=== PATIENT | male | born 1990 | race Caucasian/White ===

== ENCOUNTER 2020-08-21 10:57 | Emergency (ER) | payer OTHER ==
[~2020-08-21] VITALS: Ht 177.8 cm; Wt 111.1 kg
[~2020-08-21 10:57] MED LIST: BACTRIM DS TAB1 EACH PO; CITALOPRAM HBR20 MG PO; CLINDAMYCIN HC300 MG PO; DICLOFENAC SODI75 MG PO; GABAPENTIN600 MG PO; KEFLEX500 MG PO; OXYCODONE HCL5 MG PO; SEPTRA DS TABL1 EACH PO; SEROQUEL100 MG PO; SEROQUEL25 MG PO; TRAMADOL HCL50 MG PO; ULTRAM50 MG PO
[2020-08-21] MEDS ORDERED: PENICILLIN V P500 MG PO (11:39)
== END 2020-08-21 11:47 | disposition home or self-care (01) ==
LOC: ED 10:57
DX: K04.7 Periapical abscess without sinus (principal); F17.200 Nicotine dependence, unspecified, uncomplicated
CPT/HCPCS: 99283

== ENCOUNTER 2021-03-07 15:19 | Emergency (ER) | payer OTHER ==
[~2021-03-07] VITALS: Ht 177.8 cm; Wt 108.9 kg
[~2021-03-07 15:19] MED LIST changes: +PENICILLIN V P500 MG PO
[2021-03-07] MEDS ORDERED: PENICILLIN V P500 MG PO (15:44)
== END 2021-03-07 16:01 | disposition home or self-care (01) ==
LOC: ED 15:19
DX: K04.7 Periapical abscess without sinus (principal); F17.200 Nicotine dependence, unspecified, uncomplicated
CPT/HCPCS: 99282

== ENCOUNTER 2021-10-07 14:27 | Emergency (ER) | payer OTHER ==
[~2021-10-07] VITALS: Ht 177.8 cm; Wt 106.6 kg
== END 2021-10-07 15:35 | disposition home or self-care (01) ==
LOC: ED 14:27
DX: S61.432A Puncture wound without foreign body of left hand, initial encounter (principal); F17.200 Nicotine dependence, unspecified, uncomplicated; W26.0XXA Contact with knife, initial encounter
CPT/HCPCS: 90471; 90715; 99283

== ENCOUNTER 2023-03-18 00:01 | Emergency (ER) | payer OTHER ==
[~2023-03-18] VITALS: Ht 177.8 cm; Wt 92.2 kg
[2023-03-18 00:54] LABS: HEMOGLOBIN 12.3 g/dL (12.0-18.0)
[2023-03-18 00:56] LABS: HEMATOCRIT 36.9 % (35.0-50.0); MCH 29.4 (27-36); MCHC 33.3 g/dl (30-36); MCV 88.2 fl (81-99); PLATELET COUNT 290 K/uL (140-440); RBC 4.18 M/ul (4.3-5.7); RDW 14.9 (10.5-15.0)
[2023-03-18 01:09] LABS: ALBUMIN 3.2 g/dL (3.4-5.0); ALBUMIN/GLOBULIN RATIO 0.74 (1.1-2.4); ANION GAP 8.4 (7-21); BANDS, MANUAL DIFF 3; BILIRUBIN, TOTAL 0.3 ng/dL (0.2-1.0); BUN/CREATININE RATIO 9.63 (6.0-28.6); CALCIUM 8.7 mg/dL (8.5-10.1); CREATININE, SERUM 0.83 mg/dL (0.70-1.30); LYMPHOCYTES, MANUAL DIFF 6; MONOCYTES, MANUAL DIFF 2; NEUTROPHILS, MANUAL DIFF 89; POTASSIUM 3.4 mmol/L (3.5-5.1); PROTEIN, TOTAL 7.5 g/dL (6.4-8.2)
[2023-03-18] MEDS ORDERED: AMOX TR-K CLV1 EAC1 PO (01:33)
[2023-03-18] MEDS ORDERED: BACTRIM DS TAB1 EACH PO (01:33)
[2023-03-18 05:35] VITALS: BP 131/80
== END 2023-03-18 05:41 | disposition home or self-care (01) ==
LOC: ED 00:01
PROVIDERS: Internal Medicine
DX: L02.212 Cutaneous abscess of back [any part, except buttock and flank] (principal); F17.200 Nicotine dependence, unspecified, uncomplicated
CPT/HCPCS: 10160; 36415; 80053; 83605; 85025; 87040; 87070; 87075; 87205; 99283-25; A9270; J2543; J3370; J7060; J7121

== ENCOUNTER 2023-03-19 00:07 | Inpatient (IN) | payer OTHER ==
[~2023-03-19] VITALS: Ht 177.8 cm; Wt 93.1 kg
--- OUTSIDE RECORDS SUMMARY | ~2023-03-19 | XMS | Continuity of Care Document ---
Demographics + + + | Address | [address] | | | [place] [address] | + + + | Preferred Language | Unknown | + + + | Marital Status | Never | + + + | Shinto Affiliation | Unknown | + + + | Race | White | + + + | Ethnic Group | Not or | + + + Author + + + | Author | [facility] | + + + | Organization | [facility] | + + + | Address | [address] | | | [place] [address] | + + + | Phone | | + + + Care Team Providers + + + + | Care Cuprous Chloride Operator Name | Role | Phone | + + + + Unavailable | Unavailable | + + + + Unavailable | Unavailable | + + + + Unavailable | Unavailable | + + + + Allergies and Intolerances + + + + + + | date | description | facility | reaction | severity | + + + + + + | (no date) | No Known Drug | [facility] | (no reaction) | (no severity) | | | Allergies | | | | + + + + + + Encounters No information. Functional Status No information. Immunizations + + + + | date | description | facility | + + + + | 2021-10-07 00:00 | Tdap | [facility] | + + + + | 2023-03-18 00:00 | No vaccine administered | [facility] | + + + + Medications + + + + | date | description | facility | + + + + | 2013-01-04 00:00 | CLINDAMYCIN HCL | [facility] | + + + + | 2013-01-04 00:00 | clindamycin 300 MG Oral | [facility] | | | Capsule | | + + + + | 2023-03-18 00:00 | AMOXICILLIN/POTASSIUM CLAV | [facility] | | | | | + + + + | 2023-03-18 00:00 | amoxicillin 875 MG / | [facility] | | | clavulanate 125 MG Oral | | | | Tablet | | + + + + | 2020-08-21 00:00 | PENICILLIN V POTASSIUM | [facility] | + + + + | 2021-03-07 00:00 | PENICILLIN V POTASSIUM | [facility] | + + + + | 2020-08-21 00:00 | penicillin V potassium 500 | [facility] | | | MG Oral Tablet | | + + + + | 2021-03-07 00:00 | penicillin V potassium 500 | [facility] | | | MG Oral Tablet | | + + + + | 2013-06-13 00:00 | TRAMADOL HCL | [facility] | + + + + | 2013-06-13 00:00 | tramadol hydrochloride 50 | [facility] | | | MG Oral Tablet | | + + + + | 2013-01-04 00:00 | TRAMADOL HCL | [facility] | + + + + | 2013-01-04 00:00 | tramadol hydrochloride 50 | [facility] | | | MG Oral Tablet [Ultram] | | + + + + | 2014-01-18 00:00 | | [facility] | | | SULFAMETHOXAZOLE/TRIMETHOPR | | | | IM DS | | + + + + | 2023-03-18 00:00 | | [facility] | | | SULFAMETHOXAZOLE/TRIMETHOPR | | | | IM DS | | + + + + | 2014-01-18 00:00 | sulfamethoxazole 800 MG / | [facility] | | | trimethoprim 160 MG Oral | | | | Tablet [B | | + + + + | 2023-03-18 00:00 | sulfamethoxazole 800 MG / | [facility] | | | trimethoprim 160 MG Oral | | | | Tablet [B | | + + + + Problems + + + + | date | description | facility | + + + + | 2020-08-21 00:00 | Dental infection | [facility] | + + + + | 2020-08-21 00:00 | Infection of tooth | [facility] | + + + + | 2021-10-07 00:00 | Puncture wound of left | [facility] | | | hand | | + + + + | 2023-03-18 00:00 | Abscess | [facility] | + + + + Procedures No information. Results/Labs +--------+--------+ +---------+--------+---------+ | test | date | facility | value | unit | notes | +--------+--------+ +---------+--------+---------+ + + | Result panel 1 | + + + + + +--------+ + + | | 2023-03-18 | [facility] | 19.3 | (missing) | (missing) | | (unavailable | [facility]45:07 [facility] | | | | + + + +--------+ + + + + | Result panel 2 | + + + + + +------+ + + | | 2023-03-18 | [facility] | 89 | (missing) | (missing) | | (unavailable | 00[facility]45:07 [facility] | | | | + + + +------+ + + + + | Result panel 3 | + + + + + +-----+ + + | | 2023-03-18 | [facility] | 6 | (missing) | (missing) | | (unavailable | 00[facility]45:07 [facility] | | | | + + + +-----+ + + + + | Result panel 4 | + + + + + +-----+ + + | | 2023-03-18 | [facility] | 2 | (missing) | (missing) | | (unavailable | 00[facility]45:07 [facility] | | | | + + + +-----+ + + + + | Result panel 5 | + + + + + +-----+ + + | | 2023-03-18 | [facility] | 3 | (missing) | (missing) | | (unavailable | 00[facility]45:07 [facility] | | | | + + + +-----+ + + + + | Result panel 6 | + + + + + +-------+---------+ + | | 2023-03-18 | [facility] | 138 | mg/dL | (missing) | | (unavailable | 00:45:07 [facility] | | | | + + + +-------+---------+ + + + | Result panel 7 | + + + + + +-----+---------+ + | | 2023-03-18 | [facility] | 8 | mg/dL | (missing) | | (unavailable | 00:45:07 [facility] | | | | + + + +-----+---------+ + + + | Result panel 8 | + + + + + +--------+---------+ + | | 2023-03-18 | [facility] | 0.83 | mg/dL | (missing) | | (unavailable | 00:45:07 [facility] | | | | + + + +--------+---------+ + + + | Result panel 9 | + + + + + +-------+ + + | | 2023-03-18 | [facility] | 119 | (missing) | (missing) | | (unavailable | 00:45:07 [facility] | | | | + + + +-------+ + + + + | Result panel 10 | + + + + + +--------+ + + | | 2023-03-18 | [facility] | 9.63 | (missing) | (missing) | | (unavailable | 00:45:07 [facility] | | | | + + + +--------+ + + + + | Result panel 11 | + + + + + +-------+ + + | | 2023-03-18 | [facility] | 136 | (missing) | (missing) | | (unavailable | 00:45:07 [facility] | | | | + + + +-------+ + + + + | Result panel 12 | + + + + + +--------+ + + | | 2023-03-18 | [facility] | 4.18 | (missing) | (missing) | | (unavailable | 00:45:07 [facility] | | | | + + + +--------+ + + + + | Result panel 13 | + + + + + +-------+ + + | | 2023-03-18 | [facility] | 3.4 | (missing) | (missing) | | (unavailable | 00:45:07 [facility] | | | | + + + +-------+ + + + + | Result panel 14 | + + + + + +------+ + + | | 2023-03-18 | [facility] | 99 | (missing) | (missing) | | (unavailable | 00:45:07 [facility] | | | | + + + +------+ + + + + | Result panel 15 | + + + + + +------+ + + | | 2023-03-18 | [facility] | 32 | (missing) | (missing) | | (unavailable | 00:45:07 [facility] | | | | + + + +------+ + + + + | Result panel 16 | + + + + + +-------+ + + | | 2023-03-18 | [facility] | 8.4 | (missing) | (missing) | | (unavailable | 00:45:07 [facility] | | | | + + + +-------+ + + + + | Result panel 17 | + + + + + +-------+---------+ + | | 2023-03-18 | [facility] | 8.7 | mg/dL | (missing) | | (unavailable | 00:45:07 [facility] | | | | + + + +-------+---------+ + + + | Result panel 18 | + + + + + +-------+ + + | | 2023-03-18 | [facility] | 7.5 | (missing) | (missing) | | (unavailable | 00:45:07 [facility] | | | | + + + +-------+ + + + + | Result panel 19 | + + + + + +-------+ + + | | 2023-03-18 | [facility] | 3.2 | (missing) | (missing) | | (unavailable | 00:45:07 [facility] | | | | + + + +-------+ + + + + | Result panel 20 | + + + + + +-------+ + + | | 2023-03-18 | [facility] | 4.3 | (missing) | (missing) | | (unavailable | 00:45:07 [facility] | | | | + + + +-------+ + + + + | Result panel 21 | + + + + + +--------+ + + | | 2023-03-18 | [facility] | 0.74 | (missing) | (missing) | | (unavailable | 00:45:07 [facility] | | | | + + + +--------+ + + + + | Result panel 22 | + + + + + +-------+ + + | | 2023-03-18 | [facility] | 0.3 | (missing) | (missing) | | (unavailable | 00:45:07 [facility] | | | | + + + +-------+ + + + + | Result panel 23 | + + + + + +--------+ + + | | 2023-03-18 | [facility] | 12.3 | (missing) | (missing) | | (unavailable | 00:45:07 [facility] | | | | + + + +--------+ + + + + | Result panel 24 | + + + + + +------+ + + | | 2023-03-18 | [facility] | 21 | (missing) | (missing) | | (unavailable | 00:45:07 [facility] | | | | + + + +------+ + + + + | Result panel 25 | + + + + + +------+ + + | | 2023-03-18 | [facility] | 29 | (missing) | (missing) | | (unavailable | 00[facility]45:07 [facility] | | | | + + + +------+ + + + + | Result panel 26 | + + + + + +-------+ + + | | 2023-03-18 | [facility] | 116 | (missing) | (missing) | | (unavailable | 00:45:07 [facility] | | | | + + + +-------+ + + + + | Result panel 27 | + + + + + +-------+ + + | | 2023-03-18 | [facility] | 1.0 | (missing) | (missing) | | (unavailable | 00[facility]45:07 [facility] | | | | + + + +-------+ + + + + | Result panel 28 | + + + + + +--------+ + + | | 2023-03-18 | [facility] | 36.9 | (missing) | (missing) | | (unavailable | 00:45:07 [facility] | | | | + + + +--------+ + + + + | Result panel 29 | + + + + + +--------+ + + | | 2023-03-18 | [facility] | 88.2 | (missing) | (missing) | | (unavailable | 00:45:07 [facility] | | | | + + + +--------+ + + + + | Result panel 30 | + + + + + +--------+ + + | | 2023-03-18 | [facility] | 29.4 | (missing) | (missing) | | (unavailable | 00:45:07 [facility] | | | | + + + +--------+ + + + + | Result panel 31 | + + + + + +--------+ + + | | 2023-03-18 | [facility] | 33.3 | (missing) | (missing) | | (unavailable | 00:45:07 [facility] | | | | + + + +--------+ + + + + | Result panel 32 | + + + + + +--------+ + + | | 2023-03-18 | [facility] | 14.9 | (missing) | (missing) | | (unavailable | 00:45:07 [facility] | | | | + + + +--------+ + + + + | Result panel 33 | + + + + + +-------+ + + | | 2023-03-18 | [facility] | 290 | (missing) | (missing) | | (unavailable | 00:45:07 [facility] | | | | + + + +-------+ + + + + | Serum or plasma alanine aminotransferase measurement (enzymatic activity/volume) | + + + + + +------+ + + | Serum or | 2023-03-18 | [facility] | 29 | (missing) | (missing) | | plasma | 00:45 | [facility] | | | | alanine | | Hospital | | | | | aminotransfe | | | | | | | rase | | | | | | | measurement | | | | | | | (enzymatic | | | | | | | activity/vol | | | | | | | ume) | | | | | | + + + +------+ + + + + | Serum or plasma albumin measurement (mass/volume) | + + + + + +-------+ + + | Serum or | 2023-03-18 | [facility] | 3.2 | (missing) | (missing) | | plasma | 00:45 | [facility] | | | | albumin | [facility] | | | | | measurement | | | | | | | (mass/volume | | | | | | | ) | | | | | | + + + +-------+ + + + + | Serum or plasma albumin/globulin mass ratio | + + + + + +--------+ + + | Serum or | 2023-03-18 | [facility] | 0.74 | (missing) | (missing) | | plasma | 00:45 | [facility] | | | | albumin/glob | | [facility] | | | | | ulin mass | | | | | | | ratio | | | | | | + + + +--------+ + + + + | Serum or plasma calcium measurement (mass/volume) | + + + + + +-------+ + + | Serum or | 2023-03-18 | [facility] | 8.7 | (missing) | (missing) | | plasma | 00:45 | [facility] | | | | calcium | | [facility] | | | | | measurement | | | | | | | (mass/volume | | | | | | | ) | | | | | | + + + +-------+ + + + + | Serum or plasma anion gap 4 | + + + + + +-------+ + + | Serum or | 2023-03-18 | [facility] | 8.4 | (missing) | (missing) | | plasma anion | 00:45 | [facility] | | | | gap 4 | | [facility] | | | | + + + +-------+ + + + + | Serum or plasma aspartate aminotransferase measurement (enzymatic activity/volume) | + + + + + +------+ + + | Serum or | 2023-03-18 | [facility] | 21 | (missing) | (missing) | | plasma | 00:45 | [facility] | | | | aspartate | | [facility] | | | | | aminotransfe | | | | | | | rase | | | | | | | measurement | | | | | | | (enzymatic | | | | | | | activity/vol | | | | | | | ume) | | | | | | + + + +------+ + + + + | Serum or plasma total bilirubin measurement (mass/volume) | + + + + + +-------+ + + | Serum or | 2023-03-18 | [facility] | 0.3 | (missing) | (missing) | | plasma total | 00:45 | [facility] | | | | bilirubin | | [facility] | | | | | measurement | | | | | | | (mass/volume | | | | | | | ) | | | | | | + + + +-------+ + + + + | Serum or plasma carbon dioxide, total measurement (moles/volume) | + + + + + +------+ + + | Serum or | 2023-03-18 | [facility] | 32 | (missing) | (missing) | | plasma | 00:45 | [facility] | | | | carbon | | [facility] | | | | | dioxide, | | | | | | | total | | | | | | | measurement | | | | | | | (moles/volum | | | | | | | e) | | | | | | + + + +------+ + + + + | Serum or plasma chloride measurement (moles/volume) | + + + + + +------+ + + | Serum or | 2023-03-18 | [facility] | 99 | (missing) | (missing) | | plasma | 00:45 | [facility] | | | | chloride | | [facility] | | | | | measurement | | | | | | | (moles/volum | | | | | | | e) | | | | | | + + + +------+ + + + + | Automated erythrocyte distribution width | + + + + + +--------+ + + | Automated | 2023-03-18 | [facility] | 14.9 | (missing) | (missing) | | erythrocyte | 00:45 | [facility] | | | distribution | | [facility] | | | | | width | | | | | | + + + +--------+ + + + + | Serum or plasma creatinine measurement (mass/volume) | + + + + + +--------+ + + | Serum or | 2023-03-18 | [facility] | 0.83 | (missing) | (missing) | | plasma | 00:45 | [facility] | | | creatinine | [facility] | | | | | measurement | | | | | | | (mass/volume | | | | | | | ) | | | | | | + + + +--------+ + + + + | Serum globulin measurement (mass/volume) | + + + + + +-------+ + + | Serum | 2023-03-18 | [facility] | 4.3 | (missing) | (missing) | | globulin | 00:45 | [facility] | [facility] | [facility] | | | | | (mass/volume | | | | | | | ) | | | | | | + + + +-------+ + + + + | Serum or plasma glucose measurement (mass/volume) | + + + + + +-------+ + + | Serum or | 2023-03-18 | [facility] | 138 | (missing) | (missing) | | plasma | 00:45 | [facility] | | | | glucose | | [facility] | | | | | measurement | | | | | | | (mass/volume | | | | | | | ) | | | | | | + + + +-------+ + + + + | Serum or plasma lactate measurement (moles/volume) | + + + + + +-------+ + + | Serum or | 2023-03-18 | [facility] | 1.0 | (missing) | (missing) | | plasma | 00:45 | [facility] | | | | lactate | | [facility] | | | | | measurement | | | | | | | (moles/volum | | | | | | | e) | | | | | | + + + +-------+ + + + + | Serum or plasma potassium measurement (moles/volume) | + + + + + +-------+ + + | Serum or | 2023-03-18 | [facility] | 3.4 | (missing) | (missing) | | plasma | 00:45 | [facility] | | | potassium | | [facility] | | | | | measurement | | | | | | | (moles/volum | | | | | | | e) | | | | | | + + + +-------+ + + + + | Serum or plasma protein measurement (mass/volume) | + + + + + +-------+ + + | Serum or | 2023-03-18 | [facility] | 7.5 | (missing) | (missing) | | plasma | 00:45 | [facility] | | | | protein | | [facility] | | | | | measurement | | | | | | | (mass/volume | | | | | | | ) | | | | | | + + + +-------+ + + + + | Serum or plasma sodium measurement (moles/volume) | + + + + + +-------+ + + | Serum or | 2023-03-18 | [facility] | 136 | (missing) | (missing) | | plasma | 00:45 | [facility] | | | | sodium | | [facility] | | | | | measurement | | | | | | | (moles/volum | | | | | | | e) | | | | | | + + + +-------+ + + + + | Serum or plasma urea nitrogen measurement (mass/volume) | + + + + + +-----+ + + | Serum or | 2023-03-18 | [facility] | 8 | (missing) | (missing) | | plasma urea | 00:45 | [facility] | | | | nitrogen | | [facility] | | | | | measurement | | | | | | | (mass/volume | | | | | | | ) | | | | | | + + + +-----+ + + + + | Serum or plasma urea nitrogen/creatinine mass ratio | + + + + + +--------+ + + | Serum or | 2023-03-18 | [facility] | 9.63 | (missing) | (missing) | | plasma urea | 00:45 | [facility] | | | | nitrogen/cre | | [facility] | | | | | atinine mass | | | | | | | ratio | | | | | | + + + +--------+ + + + + | Blood leukocytes automated count (number/volume) | + + + + + +--------+ + + | Blood | 2023-03-18 | [facility] | 19.3 | (missing) | (missing) | | leukocytes | 00:45 | [facility] | | | | automated | | [facility] | | | | | count | | | | | | | (number/volu | | | | | | | me) | | | | | | + + + +--------+ + + + + | Serum or plasma alkaline phosphatase measurement (enzymatic activity/volume) | + + + + + +-------+ + + | Serum or | 2023-03-18 | [facility] | 116 | (missing) | (missing) | | plasma | 00:45 | [facility] | | | | alkaline | | [facility] | | | | | phosphatase | | | | | | | measurement | | | | | | | (enzymatic | | | | | | | activity/vol | | | | | | | ume) | | | | | | + + + +-------+ + + + + | Blood hemoglobin measurement (mass/volume) | + + + + + +--------+ + + | Blood | 2023-03-18 | [facility] | 12.3 | (missing) | (missing) | | hemoglobin | 00:45 | [facility] | measurement | [facility] | | | | | (mass/volume | | | | | | | ) | | | | | | + + + +--------+ + + + + | Automated blood hematocrit | + + + + + +--------+ + + | Automated | 2023-03-18 | [facility] | 36.9 | (missing) | (missing) | | blood | 00:45 | [facility] | | | | hematocrit | | [facility] | | | | + + + +--------+ + + + + | Manual blood lymphocytes/100 leukocytes | + + + + + +-----+ + + | Manual | 2023-03-18 | [facility] | 6 | (missing) | (missing) | | blood | 00:45 | [facility] | | | | lymphocytes/ | | [facility] | | | | | 100 | | | | | | | leukocytes | | | | | | + + + +-----+ + + + + | Manual blood monocytes/100 leukocytes | + + + + + +-----+ + + | Manual | 2023-03-18 | [facility] | 2 | (missing) | (missing) | | blood | 00:45 | [facility] | | | | monocytes/10 | | [facility] | | | | | 0 leukocytes | | | | | | | | | | | | | + + + +-----+ + + + + | Manual blood band neutrophils form/100 leukocytes | + + + + + +-----+ + + | Manual | 2023-03-18 | [facility] | 3 | (missing) | (missing) | | blood band | 00:45 | [facility] | | | | neutrophils | | [facility] | | | | | form/100 | | | | | | | leukocytes | | | | | | + + + +-----+ + + + + | Manual blood segmented neutrophils/100 leukocytes | + + + + + +------+ + + | Manual | 2023-03-18 | [facility] | 89 | (missing) | (missing) | | blood | 00:45 | [facility] | | | | segmented | | [facility] | | | | | neutrophils/ | | | | | | | 100 | | | | | | | leukocytes | | | | | | + + + +------+ + + + + | Automated blood platelet count (count/volume) | + + + + + +-------+ + + | Automated | 2023-03-18 | [facility] | 290 | (missing) | (missing) | | blood | 00:45 | [facility] | | | | platelet | | [facility] | | | | | count | | | | | | | (count/volum | | | | | | | e) | | | | | | + + + +-------+ + + + + | Automated erythrocyte mean corpuscular hemoglobin (mass per erythrocyte) | + + + + + +--------+ + + | Automated | 2023-03-18 | [facility] | 29.4 | (missing) | (missing) | | erythrocyte | 00:45 | [facility] | | | | mean | | [facility] | | | | | corpuscular | | | | | | | hemoglobin | | | | | | | (mass per | | | | | | | erythrocyte) | | | | | | | | | | | | | + + + +--------+ + + + + | Automated erythrocyte mean corpuscular hemoglobin concentration measurement | | (mass/volume) | + + + + + +--------+ + + | Automated | 2023-03-18 | [facility] | 33.3 | (missing) | (missing) | | erythrocyte | 00:45 | [facility] | | | | mean | | [facility] | | | | | corpuscular | | | | | | | hemoglobin | | | | | | | concentratio | | | | | | | n | | | | | | | measurement | | | | | | | (mass/volume | | | | | | | ) | | | | | | + + + +--------+ + + + + | Automated erythrocyte mean corpuscular volume | + + + + + +--------+ + + | Automated | 2023-03-18 | [facility] | 88.2 | (missing) | (missing) | | erythrocyte | 00:45 | [facility] | | | | mean | | [facility] | | | | | corpuscular | | | | | | | volume | | | | | | + + + +--------+ + + + + | Blood erythrocytes automated count (number/volume) | + + + + + +--------+ + + | Blood | 2023-03-18 | [facility] | 4.18 | (missing) | (missing) | | erythrocytes | 00:45 | [facility] | | | | automated | | [facility] | | | | | count | | | | | | | (number/volu | | | | | | | me) | | | | | | + + + +--------+ + + + + | Glomerular filtration rate/1.73 sq M.predicted [Volume Rate/Area] inSerum, Plasma or | | Blood by Creatinine-based formula (CKD-EPI 2020) | + + + + + +-------+ + + | Glomerular | 2023-03-18 | [facility] | 119 | (missing) | (missing) | | filtration | 00:45 | [facility] | | | | | rate/1.73 sq | | Hospital | | | | | M.predicted | | | | | | | [Volume | | | | | | | Rate/Area] | | | | | | | inSerum, | | | | | | | Plasma or | | | | | | | Blood by | | | | | | | Creatinine-b | | | | | | | ased formula | | | | | | | (CKD-EPI | | | | | | | 2020) | | | | | | + + + +-------+ + + Social History + + + + | date | description | facility | + + + + | 2023-03-18 00:00 | Current every day smoker | [facility] | + + + + Vital Signs + + + +---------+ | date | measurement | value | units | + + + +---------+ | 2023-03-18 00:00 | BMI | 29.2 | kg/m2 | + + + +---------+ | 2023-03-18 00:00 | BP_diastolic | 80 | mmHg | + + + +---------+ | 2023-03-18 00:00 | BP_systolic | 131 | mmHg | + + + +---------+ | 2023-03-18 00:00 | heart_rate | 96 | /min | + + + +---------+ | 2023-03-18 00:00 | height_metric | 177.8 | cm | + + + +---------+ | 2023-03-18 00:00 | height_standard | 70 | in | + + + +---------+ | 2023-03-18 00:00 | o2_saturation | 98 | % | + + + +---------+ | 2023-03-18 00:00 | respiration_rate | 18 | /min | + + + +---------+ | 2023-03-18 00:00 | temperature_metric | 36.78 | C | | | | | | + + + +---------+ | 2023-03-18 00:00 | | 98.2 | F | | | temperature_standar | | | | | d | | | + + + +---------+ | 2023-03-18 00:00 | weight_metric | 92.2 | kg | + + + +---------+ | 2023-03-18 00:00 | weight_standard | 203.27 | lb | + + + +---------+"
--- OUTSIDE RECORDS SUMMARY | ~2023-03-19 | XMS | Continuity of Care Document ---
Demographics + + + | Address | [address] | | | [place] [address] | + + + | Preferred Language | Unknown | + + + | Marital Status | Never | + + + | Moravian Affiliation | Unknown | + + + | Race | White | + + + | Ethnic Group | Not or | + + + Author + + + | Author | [place] | + + + | Organization | [place] | + + + | Address | [address] | | | [place] [address] | + + + | Phone | | + + + Care Team Providers + + + + | Care Logger All Round Name | Role | Phone | + [...] | 2021-10-07 00:00 | Tdap | [facility] | + + + + | 2023-03-18 00:00 | No vaccine administered | [facility] | + + + + Medications + + + + | date | description | facility | + + + + | 2013-01-04 00:00 | CLINDAMYCIN HCL | [facility] | + + + + | 2013-01-04 00:00 | clindamycin 300 MG Oral | [facility] | | | Capsule | | + + + + | 2023-03-18 00:00 | AMOXICILLIN/POTASSIUM CLAV | [facility] | | | | | + + + + | 2023-03-18 00:00 | amoxicillin 875 MG / | [facility] | | | clavulanate 125 MG Oral | | | | Tablet | | + + + + | 2020-08-21 00:00 | PENICILLIN V POTASSIUM | [facility] | + + + + | 2021-03-07 00:00 | PENICILLIN V POTASSIUM | [facility] | + + + + | 2020-08-21 00:00 | penicillin V potassium 500 | [facility] | | | MG Oral Tablet | | + + + + | 2021-03-07 00:00 | penicillin V potassium 500 | [facility] | | | MG Oral Tablet | | + + + + | 2013-06-13 00:00 | TRAMADOL HCL | [facility] | + + + + | 2013-06-13 00:00 | tramadol hydrochloride 50 | [facility] | | | MG Oral Tablet | | + + + + | 2013-01-04 00:00 | TRAMADOL HCL | [facility] | + + + + | 2013-01-04 00:00 | tramadol hydrochloride 50 | [facility] | | | MG Oral Tablet [Ultram] | | + + + + | 2014-01-18 00:00 | | [facility] | | | SULFAMETHOXAZOLE/TRIMETHOPR | | | | IM DS | | + + + + | 2023-03-18 00:00 | | [facility] | | | SULFAMETHOXAZOLE/TRIMETHOPR | | | | IM DS | | + + + + | 2014-01-18 00:00 | sulfamethoxazole 800 MG / | [facility] | | | trimethoprim 160 MG Oral | | | | Tablet [B | | + + + + | 2023-03-18 00:00 | sulfamethoxazole 800 MG / | [facility] | | | trimethoprim 160 MG Oral | | | | Tablet [B | | + + + + Problems + + + + | date | description | facility | + + + + | 2020-08-21 00:00 | Dental infection | [facility] | + + + + | 2020-08-21 00:00 | Infection of tooth | [facility] | + + + + | 2021-10-07 00:00 | Puncture wound of left | [facility] | | | hand | | + + + + | 2023-03-18 00:00 | Abscess | [facility] | + + + + Procedures [...] | Current every day smoker | [facility] | + + + + Vital Signs [...]
--- OUTSIDE RECORDS SUMMARY | ~2023-03-19 | XMS | Continuity of Care Document ---
Demographics + + + | Address | [address] | | | [place] [address] | + + + | Preferred Language | Unknown | + + + | Marital Status | Never | + + + | Anabaptist Affiliation | Unknown | + + + | Race | White | + + + | Ethnic Group | Not or | + + + Author + + + | Author | [facility] | + + + | Organization | [facility] | + + + | Address | [address] | | | [place] [address] | + + + | Phone | | + + + Care Team Providers + + + + | Care Automotive Wholesale Parts Advisor Name | Role | Phone | + [...] | 2021-10-07 00:00 | Tdap | [facility] | + + + + | 2023-03-18 00:00 | No vaccine administered | [facility] | + + + + Medications + + + + | date | description | facility | + + + + | 2013-01-04 00:00 | CLINDAMYCIN HCL | [facility] | + + + + | 2013-01-04 00:00 | clindamycin 300 MG Oral | [facility] | | | Capsule | | + + + + | 2023-03-18 00:00 | AMOXICILLIN/POTASSIUM CLAV | [facility] | | | | | + + + + | 2023-03-18 00:00 | amoxicillin 875 MG / | [facility] | | | clavulanate 125 MG Oral | | | | Tablet | | + + + + | 2020-08-21 00:00 | PENICILLIN V POTASSIUM | [facility] | + + + + | 2021-03-07 00:00 | PENICILLIN V POTASSIUM | [facility] | + + + + | 2020-08-21 00:00 | penicillin V potassium 500 | [facility] | | | MG Oral Tablet | | + + + + | 2021-03-07 00:00 | penicillin V potassium 500 | [facility] | | | MG Oral Tablet | | + + + + | 2013-06-13 00:00 | TRAMADOL HCL | [facility] | + + + + | 2013-06-13 00:00 | tramadol hydrochloride 50 | [facility] | | | MG Oral Tablet | | + + + + | 2013-01-04 00:00 | TRAMADOL HCL | [facility] | + + + + | 2013-01-04 00:00 | tramadol hydrochloride 50 | [facility] | | | MG Oral Tablet [Ultram] | | + + + + | 2014-01-18 00:00 | | [facility] | | | SULFAMETHOXAZOLE/TRIMETHOPR | | | | IM DS | | + + + + | 2023-03-18 00:00 | | [facility] | | | SULFAMETHOXAZOLE/TRIMETHOPR | | | | IM DS | | + + + + | 2014-01-18 00:00 | sulfamethoxazole 800 MG / | [facility] | | | trimethoprim 160 MG Oral | | | | Tablet [B | | + + + + | 2023-03-18 00:00 | sulfamethoxazole 800 MG / | [facility] | | | trimethoprim 160 MG Oral | | | | Tablet [B | | + + + + Problems + + + + | date | description | facility | + + + + | 2020-08-21 00:00 | Dental infection | [facility] | + + + + | 2020-08-21 00:00 | Infection of tooth | [facility] | + + + + | 2021-10-07 00:00 | Puncture wound of left | [facility] | | | hand | | + + + + | 2023-03-18 00:00 | Abscess | [facility] | + + + + Procedures [...] (missing) | | erythrocytes | 00:45 | Knu | | | | | automated | [...] | Current every day smoker | [facility] | + + + + Vital Signs [...]
[~2023-03-19 00:07] MED LIST changes: +AMOX TR-K CLV1 EAC1 PO
--- OUTSIDE RECORDS SUMMARY | 2023-03-19 00:16 | XMS ---
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 Joann has no Care Guidelines for this patient. Bishnu VISIT COUNT (12 MO.) [address] [facility]. TOTAL 2 NOTE: Visits indicate total known visits. ED/C VISIT TRACKING (12 MO.) 03/19/2023 00:[address] [facility] [place] TYPE: Emergency COMPLAINT: - WOUND CHECK 03/18/2023 00:03 [facility] [place] TYPE: Emergency COMPLAINT: - R SHOULDER INFECTION INPATIENT VISIT TRACKING (12 MO.) No inpatient visits to display in this time frame [email or web address]
[2023-03-19 05:59] LABS: HEMATOCRIT 39.9 % (35.0-50.0); MCH 29.2 (27-36); MCHC 32.5 g/dl (30-36); MCV 89.7 fl (81-99); PLATELET COUNT 307 K/uL (140-440); RBC 4.45 M/ul (4.3-5.7); RDW 14.8 (10.5-15.0)
[2023-03-19 06:11] LABS: BANDS, MANUAL DIFF 13; EOSINOPHILS, MANUAL DIFF 3; LYMPHOCYTES, MANUAL DIFF 11; MONOCYTES, MANUAL DIFF 8; NEUTROPHILS, MANUAL DIFF 65
[2023-03-19 06:14] LABS: ALBUMIN 2.8 g/dL (3.4-5.0); ALBUMIN/GLOBULIN RATIO 0.6 (1.1-2.4); ANION GAP 11.1 (7-21); BILIRUBIN, TOTAL 0.3 ng/dL (0.2-1.0); BUN/CREATININE RATIO 8.33 (6.0-28.6); CALCIUM 9.1 mg/dL (8.5-10.1); CREATININE, SERUM 0.84 mg/dL (0.70-1.30); POTASSIUM 4.1 mmol/L (3.5-5.1); PROTEIN, TOTAL 7.5 g/dL (6.4-8.2)
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
--- NOTE | 2023-03-19 11:01 | NUR ---
03/19/23 1101 Aneta Barrett 1033 PT ARRIVED IN PACU NON RESPONSIVE TO NOXIOUS STIMULI. 1045 ICE TO R SCAPULAR AREA. 1100 PT REACTIVE TO VERBAL STIMULI. NO C/O'S.
[2023-03-19 11:44] VITALS: BP 131/61
--- NOTE | 2023-03-19 11:44 | NUR ---
PT ARRIVED FROM PACU. PT AWAKEN AND ALERT AND ASKS TO USE THE RESTROOM. PT UP TO STAND, STEADY ON FEET. BMAT LEVEL 3 FOR LINE AND TUBE MANAGEMENT. PT VOIDS 100ML IN URINAL. REJI CARE PER PT. STAND BY ASSIST BACK TO BED. PT OREINTED TO ALL.LUNG SOUNDS CLEAR. HEART TONES REGULAR. ABDOMEN SOFT AND NON TENDER. BOWEL TONES ACTIVE. PT UNABLE TO RECALL WHEN HIS LAST BOWEL MOVEMENT OCCURED. DRESSING TO RIGHT SHOUDLER WNL, NO DRAINAGE SEEN. PT DENIES PAIN AND NAUSEA. PICK PINEDA SEEN OVER PTS ARMS LEGS AND ABDOMEN. PT ENCORUAGED NOT TO PICK AT SKIN. PT REQUESTS FOOD AND WATER. CRACKERS, PUDDING, WATER PROVIDED, PT TOELRATES WELL. MEDICAITON GIVEN. PT DENIES ADDITIONAL REQUESTS OR COMPLAINTS. CALL LIGHT WIHTIN REACH. BED RAILS UP.
[2023-03-19 12:49] VITALS: BP 120/57
--- NOTE | 2023-03-19 12:51 | NUR ---
VITALS AND ASSESSMENT DUE. PT RESTING IN BED WITH HEAD OF BED ELEVATED TO 37 DEGREES. PT DROWSY ON AND OFF. PT AWAKENS ON AND OFF, PT RPEORTS 4/10 PAIN IN RIGHT SHOULDER, SEE MAR FOR MEDICATION GIVEN. VITAL SIGNS STABLE. DRESSING TO RIGHT SHOUDLER C/D/I WITH NO DRAINAGE PRESENT. PT DENEIS ADDITIONAL REQUESTS OR COMPLAINTS. CALL LIGHT WITHIN REACH. BED RAILS UP.
[2023-03-19 13:41] VITALS: BP 115/63
--- NOTE | 2023-03-19 13:43 | NUR ---
VITALS AND ASSESSMENT DUE. PT RESTING IN BED WITH EYES CLOSED. AWAKENS TO VOICE AND LIGHT TOUCH. PT REMAINS ALERT AND ORINETED TO ALL, ALTHOUGH DROWSY. DIAPHORESIS PRESENT, NOTED THAT PT IS COMING DOWN FROM METH USE ON SATURDAY. PT REPORTS 2/10 PAIN STATING PAIN MEDICATION HELPED AND PAIN IS TOELRABLE AT THIS TIME. PT TOELRATIN ROOM AIR WITH OXGYEN SATURATIONS ABOVE 96% EVEN WHILE SLEEPING. DRESSING TO RIGHT SHOULDER C/D/I. CASE MANAGEMENT TO BEDSIDE TO KARISSA ON PT. PT DENIES ADDITIONAL REQUESTS OR COMPLAINTS. CALL LIGHT WITHIN REACH. BED RAILS UP.
--- NOTE | 2023-03-19 13:49 | NUR ---
PATIENT IN BED POST OP. STATES HE "TECHNICALLY LIVES WITH MY MOM, BUT I'M STAYING WITH A FRIEND." MOTHER'S ADDRESS ON CHART. NO ISSUES WITH MOBILITY. DENIES ANY DME. DENIES FINANCIAL HARDSHIP SUCH WITH FOOD OR MEDICATIONS. STATES HE STILL DRIVES AND DOES NOT NORMALLY HAVE AN ISSUE WITH TRANSPORTATION. DENIES ANY NEEDS AT THIS TIME.
[2023-03-19 14:37] VITALS: BP 127/60
--- NOTE | 2023-03-19 14:37 | NUR ---
AFTERNOON ASSESSMENT AND VITALS DUE. PT RESTING IN BED WITH EYES CLOSED. PT AWAKENS TO VOICE AND LIGHT TOUCH. PT REPORTS FEELING "TIRED. " PT REPORTS "A LITTLE" PAIN IN RIGHT SHOULDER THAT HE RATES AT 1/10. PT DENIES NAUSEA. HEART TONES REMAIN REGULAR. LUNG SOUNDS CLEAR. PT REMAINS MILDY DIPHROETIC, LESS THAN LAST HOUR. ABDOMEN SOFT AND NON TENDER WITH BOWEL TONES ACTIVE. DRESSING TO RIGHT SHOUDLER REMAINS C/D/I WITH NO DRAINAGE PRESENT. PICK PINEDA OVER SKIN UNCHANGED. STRONG PERPHERAL PULSES PRESENT. SCD'S IN PLACE. STAND BY ASSSIST UP TO RESTROOM. PT VOIDS IN URINAL WITHOUT ISSUE. STAND BY ASSIST BACK TO BED. DR. MATOS TO BEDSIDE FOR ROUNDS, UPDATED ON PT STATUS AND ASSESSMENT, NO NEW ORDERS AT THIS TIME. PT RETURNS TO RESTING WITH EYES CLOSED. RESPIRATIONS EVEN AND UNLABORED. BED RAILS UP. CALL LIGHT WITHIN REACH. PT ALLOWED TO REST.
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
--- NOTE | 2023-03-19 16:04 | NUR ---
MED REC COMPLETE
--- NOTE | 2023-03-19 16:05 | NUR ---
PT ADMITTED THIS SHIFT AFTER I&D OF LEFT SHOULDER ABCESS. PT UP WITH STAND BY ASSIST TO RESTROOM BUT OTHERWISE DROWSY. PT TOLERATING REGULAR DIET WITH GOOD APPITITE. PT DECLINES A NICOTENE PATCH WHEN OFFERED. REPORTS HAVING HAD METH TWO DAYS AGO. PT DIAPHREOTIC AT TIMES. DRESSING TO RIGHT SHOULDER WNL AND C/D/I SO FAR THIS SHIFT. CPOX IN PLACE AND PT TOLERATING ROOM AIR. ABX GIVEN. PT VOIDING QUANITTY SUFFICIENT. PT USES CALL LIGHT INCONSISTANTLY.
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
--- NOTE | 2023-03-19 16:47 | NUR ---
THIS RN TO ROOM TO CHECK ON PT. PT CONTINEUS RESTING WITH EYES CLOSED, RESPIRATIONS EVEN AND UNLABORED. OXGYEN SATUARTION OF 97% WHILE RESTING. SCD'S IN PLACE. PT ALLOWED TO REST. CALL LIGHT WITHIN REACH. BED RAILS UP.
--- NOTE | 2023-03-19 17:45 | NUR ---
THIS RN TO ROOM TO CHECK ON PT DROWSY BUT EATING DINNER. PT REPORTS 4/10 PAIN IN RIGHT SHOULDER. SEE MAR FOR MEDICATION GIVEN. ICE WATER REFILLED. PT DENIES ADDITIONAL REQUESTS OR COMPLAINTS. OXGYEN SATURATIONS 97% ON ROOM AIR. BED RAILS UP. CALL LIGHT WITHIN REACH. BED ALARM ON.
[2023-03-19 18:02] VITALS: BP 114/55
--- NOTE | 2023-03-19 18:29 | NUR ---
THIS RN TO ROOM TO CHECK ON PT. PT RESTING IN BED WITH EYES CLOSED. AWAKENS TO MOVEMENT IN THE ROOM. PT REPORTS 1/10 PAIN IN RIGHT SHOULDER AND FALLS QUICKLY BACK TO SLEEP. DENIES NEED TO USE RESTROOM. DENIES ADDITIONAL REQUESTS OR COMPLAINTS. CALL LIGHT WITHIN REACH. BED RAILS UP. BED ALARM ON.
--- NOTE | 2023-03-19 19:07 | NUR ---
shift report received from dayswvft isaac tracy at bedside, pt resting comfortably in bed with eyes closed. rr even and unlabored, pt awoke to voice. dressing noted to back of right shoulder, some serous drainage noted on pillowcase. pt has dakins solution dressing in place. new chucks in place. pt quickly goes back to sleep, cpox in place. pt on ra. iv site wnl, fluids infusing wnl. bed alarm remains on for safety.
--- NOTE | 2023-03-19 20:42 | NUR ---
ROUNDED ON pt, pt RESTING QUIETLY IN BED WITH EYES CLOSED. ON RA, RR EVEN AND UNLABORED. CPOX IN PLACE, SPO2 UPPER 90'S. HR WNL. CALL LIGHT IN REACH AND BED ALARM ON FOR SAFETY.
--- NOTE | 2023-03-19 21:15 | NUR ---
SBA. PATIENT GOT UP TO USE THE TOILET. VOIDED 875 DARK URINE. GIVEN FRESH GOWN AND PROVIDED WASH CLOTH. PATIENT IS BACK IN BED. V/S AND I&O.S COMPLETED. PRIMARY RN WAS WITH PATIENT.
--- NOTE | 2023-03-19 21:30 | NUR ---
assessment complete, scheduled po abx given along with prn pain medication for reported 7-8/10 pain to right shoulder surgical site-see emar. dressing change to right shoulder completed per md orders, pt tolerated well but verbalized dressing change was painful. site fushed with normal saline flushes, site oozes blood w/ depacking. pressure held. new dakins full strength soaked gauze packed, unable to scan-verified with second isaac jerry. slough like tissue noted in wound. charger tester bailey also in room to assist w/ dressing change and visualized wound. iv site wnl, fluids infusing as directed. fresh ice water and soda provided. no additional needs, call light in reach.
[2023-03-19 21:38] VITALS: BP 110/58
--- NOTE | 2023-03-19 23:30 | NUR ---
pt RESTING IN BED ON RA, RR EVEN AND UNLABORED. NO DISTRESS NOTED. CPOX AT BEDSIDE. BED ALARM ON AND CALL LIGHT IN REACH.
[2023-03-20 01:36] VITALS: BP 119/55
--- NOTE | 2023-03-20 01:55 | NUR ---
rounded on pt, pt awoke to voice. highway truck driver also in room, pt up to void and back in bed. bed alarm on for safety. pt very pleasant and compliant with cares from staff. focused assessment complete, no acute changes noted. dressing to right shoulder c/d/i. iv site wnl, fluids infusing as directed. prn pain medication given for reported 5/10 pain-see emar. no additional needs or concerns, call light in reach.
--- NOTE | 2023-03-20 02:52 | NUR ---
ROUNDED ON pt, pt AWAKE AND RESTING IN BED, ON RA. RR EVEN AND UNLABORED. NO DISTRESS NOTED. CALL LIGHT IN REACH, BED ALARM ON.
--- NOTE | 2023-03-20 04:48 | NUR ---
pt A/OX4, CALLS APPROPRIATELY. pt SLEPT OFF AND ON DURING THE NIGHT, PAIN CONTROLLED WITH PRN PO PAIN MEDICATION. DRESSING CHANGE COMPLETED AT START OF SHIFT PER MD ORDERS, pt REPORTS DRESSING CHANGE TO BE PAINFUL, BUT OVERALL TOLERATED WELL. SLOUGH TISSUE NOTED TO WOUND, SITE OZZED BLOOD W/ UNPACKING OF WOUND. SITE FLUSHED/CLEANED DIRECTED AND DAKINS SOAKED GAUZE REPACKED. ABD IN PLACE, DRESSING LAST ASSESSED TO BE C/D/I. VSS, CPOX IN PLACE. IS AT BEDSIDE, pt ENCOURAGED TO USE WHEN AWAKE. pt SBA W/ AMBULATION, BED ALARM ON FOR SAFETY. NO REPORTS OF DRUG WITHDRAWL NOTED W/ EXCEPTION OF OCASSIONAL AND MILD DIAPHORESIS. pt ON REGULAR DIET, TOLERATING WELL, NO NAUSEA REPORTED.
[2023-03-20 05:19] VITALS: BP 133/64
--- NOTE | 2023-03-20 05:34 | NUR ---
ROUNDED ON pt, pt AWAKE AND RESTING IN BED. LAB IN ROOM FOR AM LAB DRAW. IV SITE WNL, FLUSHES EASILY. DRESSING UNCHANGED. CALL LIGHT IN REACH, BED ALARM ON FOR SAFETY. NO ADDITIONAL NEEDS OR CONCERNS VERBALIZED.
[2023-03-20 05:43] LABS: BASOPHILS 0.4 % (0-2); EOSINOPHILS 4.4 % (0-6); HEMATOCRIT 35.5 % (35.0-50.0); HEMOGLOBIN 11.7 g/dL (12.0-18.0); LYMPHOCYTES 14.4 % (24-44); MCH 29.4 (27-36); MCHC 32.8 g/dl (30-36); MCV 89.7 fl (81-99); NEUTROPHILS 70.8 % (39-80); PLATELET COUNT 292 K/uL (140-440); RBC 3.96 M/ul (4.3-5.7); RDW 14.8 (10.5-15.0)
[2023-03-20 05:57] LABS: ANION GAP 11.1 (7-21); BUN/CREATININE RATIO 8.45 (6.0-28.6); CALCIUM 8.7 mg/dL (8.5-10.1); CREATININE, SERUM 0.71 mg/dL (0.70-1.30); PHOSPHORUS, INORGANIC 4.1 mg/dL (2.5-4.9); POTASSIUM 4.1 mmol/L (3.5-5.1)
--- NOTE | 2023-03-20 06:26 | NUR ---
dr peters in pt room, updated md on appearance of wound during dressing change last night, no new orders received. pt's wbc trending down. foam chargerisaac mclean aware and updated.
--- NOTE | 2023-03-20 06:34 | NUR ---
IV FLUIDS DECREASED TO 50ML PER HOUR PER ORDER.
--- NOTE | 2023-03-20 06:37 | NUR ---
VERBAL ORDER TO OUTLINE REDDNESS TO REJI WOUND AFTER AM DRESSING CHANGE. ORDER PLACED BY THIS RN.
--- NOTE | 2023-03-20 07:13 | NUR ---
REPORT RECEIVED FROM RUSLAN TANG. PT SEMI-FOWLERS IN BED WITH EYES CLOSE. RR EVEN AND UNLABORED. NO NEEDS IDENTIFIED AT THIS TIME. CALL LIGHT IN REACH. BED ALARM ON.
--- NOTE | 2023-03-20 07:27 | EKG ---
[facility] [address] [place], [place] [address] Signed Normal sinus rhythm Normal ECG No previous ECGs available Confirmed by MYRON MATOS MD ([id number]) on 03/20/2023 7:27:17 AM Electronically Signed By: MYRON MATOS 03/20/23 0727 PATIENT NAME: ANDREW KAMINSKI Electrocardiogram DATE OF : 89 PHYSICIAN: MYRON MATOS REPORT #: [id number] REPORT IS CONFIDENTIAL AND NOT TO BE RELEASED WITHOUT AUTHORIZATION
--- NOTE | 2023-03-20 08:51 | NUR ---
IN TO ADMINISTER MEDICATIONS, SEE MAR. PT TAKES PO MEDICATIONS WITH NO ISSUES. IV IN LEFT FOREARM INFILTRATED. IV REMOVED AND SITE COVERED WITH COBAN. ASSESSMENT COMPLETE. LUNG SOUNDS CLEAR. BOWEL TONES ACTIVE. PT REPORTING PAIN 5/10 IN RIGHT SHOULDER. PRN PAIN MEDICATION ADMINISTERED, SEE MAR.
[2023-03-20 09:39] VITALS: BP 117/53
--- NOTE | 2023-03-20 09:42 | NUR ---
IN ROOM WITH RUSLAN BRIGHT. RUSLAN BRIGHT STARTING ULTRASOUND IV. IV ABX STARTED, SEE SEP. IV FLUIDS RESUMED. BREAKFAST TRAY REMOVED. VITALS AND I&Os COMPLETE. PT DENIES ANY OTHER NEEDS AT THIS TIME. CALL LIGHT IN REACH.
--- NOTE | 2023-03-20 10:09 | NUR ---
PT SET UP FOR SHOWER. PT INSTRUCTED TO CALL WHEN FINISHED SHOWERING PT VERBALIZES UNDERSTANDING.
--- NOTE | 2023-03-20 10:21 | NUR ---
PT IN BATHROOM. NO VISIT. PRAYED FOR HEALING OF BODY AND SPIRIT.
--- NOTE | 2023-03-20 10:44 | NUR ---
Sitting up in bed. States she is concerned about having "bandaids or something to cover wound at home." Informed if Dr. Yagn wants a dressing on site, staff will be able to provide some materials. Also wants a [employer] prescription for pain at [place]. Encouraged her to speak with Dr. Yang regarding concerns and requests tomorrow prior to DC. Verbalizes understanding. Denies other needs at this time.
--- NOTE | 2023-03-20 11:05 | NUR ---
IN TO DRESS WOUND. PICTURES AND MEASUREMENTS TAKEN. CONSENT FORM SIGNED. REDNESS NOTED AROUND SITE. REDNESS AROUND SITE MARKED. SITE CLEANSED WITH SALINE FLUSH. PAT DRY WITH GAUZE. GAUZE SOAKED DAKIN'S TO WOUND. DRY ABD PAD PLACED, SECURED WITH TAPE. PT TOLERATES DRESSING CHANGE WELL. PT DENIES ANY OTHER NEEDS AT THIS TIME. CALL LIGHT IN REACH.
--- NOTE | 2023-03-20 12:39 | NUR ---
IN TO ROUND ON PT. PT UP IN BED. IV PUMP ALARMING, RESOLVED. PT REPORTING PAIN 11/05. PT DENIES PRN PAIN MEDICATION WHEN OFFERED. PT DENIES ANY OTHER NEEDS AT THIS TIME. CALL LIGHT IN REACH. LUNCH TRAY REMOVED. WATER PROVIDED.
--- NOTE | 2023-03-20 13:21 | NUR ---
Patient in bed alert and oriented. Discusses meth use and his desire to quit. States he is 2 days without meth and no desire to use at this time. Informed him of [facility] and offered to call and set up meeting while he is in the hospital. Declines offer. Card for [facility] provided to patient and informed if he changes his mind, this nurse will place call to get him established with [facility] program. Verbalizes understanding.
[2023-03-20 13:26] VITALS: BP 123/63
--- NOTE | 2023-03-20 14:12 | NUR ---
IN IV PUMP ALARMING, RESOLVED. PT DENIES ANY NEEDS AT THIS TIME. CALL LIGHT IN REACH.
--- NOTE | 2023-03-20 14:39 | NUR ---
PRN [place] 1 tab administered per pt request for 6 pain to back/wound. Soda provided per request. No further needs
--- NOTE | 2023-03-20 15:39 | NUR ---
IN TO ROUND ON PT. PT SITTING UP IN BED. PT RESTING WITH EYES CLOSED. RR EVEN AND UNLABORED. NO NEEDS IDENTIFIED AT THIS TIME. CALL LIGHT IN REACH.
--- NOTE | 2023-03-20 16:31 | NUR ---
IN TO ROUND ON PT. PT UP IN BED EATING MCDONALDS. PT REPORTING PAIN 1-2 OUT OF 10 AND PT STATES "IT IS JUST AN IRRITATION, IT ITCHES LIKE IT IS HEALING." ASSESSMENT COMPLETE. DRESSING TO RIGHT SHOULDER D/I WITH SMALL AMOUNT OF SEROSANGUENOS DRAINAGE NOTED. LUNG SOUNDS CLEAR. BOWEL TONES ACTIVE. IV FLUSHED WNL. PT DENIES ANY NEEDS AT THIS TIME. CALL LIGHT IN REACH.
[2023-03-20 16:48] VITALS: BP 128/63
--- NOTE | 2023-03-20 17:51 | NUR ---
PATIENT SITTING UP WATCHING TV AT THIS TIME. I&O'S CHARTED. CALL LIGHT IN REACH. NO FURTHER NEEDS AT THIS TIME.
--- NOTE | 2023-03-20 18:12 | NUR ---
IN TO ROUND ON PT. SCDs PLACED. PT DENIES ANY NEEDS AT THIS TIME. CALL LIGHT IN REACH. PT RESTING IN BED SEMI-FOWLERS.
--- NOTE | 2023-03-20 19:32 | NUR ---
PT IN BED RESTING COMFORTABLY. BREATHING EVEN AND UNLABORED. CALL LIGHT WITH REACH. IV INFUSING. DRESSING CLEAN AND INTACT. NO NEEDS AT THIS TIME.
[2023-03-20 20:17] VITALS: BP 122/61
[2023-03-21 05:11] VITALS: BP 116/52
--- NOTE | 2023-03-21 05:15 | NUR ---
PATIENT VITALS AND I/OS CHARTED ACCORDINGLY. PT. ROOM TIDIED, TRASH CANS EMPTIED, FRESH ICE WATER PROVIDED. CALL LIGHT LEFT WITHIN REACH. NO OTHER NEEDS AT THIS TIME.
--- NOTE | 2023-03-21 07:15 | NUR ---
REPORT RECEIVED FROM RUSLAN MARIN. PT RESTING IN BED WITH EYES CLOSED, RR EVEN AND UNLABORED. NO NEEDS IDENTIFIED AT THIS TIME. CALL LIGHT IN REACH.
--- NOTE | 2023-03-21 08:20 | NUR ---
pt call light answered. pt req to use br. pt does not want to use urinal at bedside. pt ambulates to br indep. pt urinal emptied by this marine consultant. no further needs. pt back in bed. call light within reach
--- NOTE | 2023-03-21 08:40 | NUR ---
IN TO ADMINISTER MEDICATIONS, SEE MAR. PT TAKES PO MEDICATIONS WITH NO ISSUES. PT REPORTING PAIN 4/10 PRN PAIN MEDICATION ADMINISTERED, SEE MAR. ASSESSMENT COMPLETE. LUNG SOUNDS CLEAR. BOWEL TONES ACTIVE. DRESSING TO RIGHT SHOULDER D/I WITH SMALL AMOUT OF SEROSANGUINEOUS DRAINAGE NOTED. DRESSING REMOVED FOR PT TO SHOWER THIS AM. IV SL FOR SHOWER. PT SET UP FOR SHOWER. PT DENIES ANY OTHER NEEDS AT THIS TIME. CALL LIGHT IN REACH.
[2023-03-21 09:29] VITALS: BP 142/63
--- NOTE | 2023-03-21 09:37 | NUR ---
IN TO APPLY WOUND DRESSING PT IS DONE WITH SHOWERING. WOUND FLUSHED WITH NS AND PATTED DRY. DAKINS SOAKED GAUZE PLACED TO WOUND BED. ABD PAD PLACED OVER WOUND AND SECURED WITH TAPE, PER ORDERS. PT TOLERATES WOUND DRESSING WELL. WOUND BED NOTED TO HAVE CREAM COLORED SLOUGH. REJI-WOUND NOTED TO HAVE REDNESS THAT DOES NOT EXTEND OUTLINED AREA. IV FLUIDS RESUMED. FINANCIAL QUANTITATIVE ANALYST IN TO VISIT WITH PT. PT DENIES ANY OTHER NEEDS FROM THIS RN AT THIS TIME. CALL LIGHT IN REACH.
--- NOTE | 2023-03-21 09:46 | NUR ---
PT SITTING IN BED. DENIED NEEDS. CONSENTED TO PRAYER. PRAYED FOR ONGOING HEALING AND ABIDING PEACE.
--- NOTE | 2023-03-21 11:01 | NUR ---
IN TO ANSWER CALL LIGHT. IV PUMP ALARMING, RESOLVED. PT DENIES ANY OTHER NEEDS AT THIS TIME. CALL LIGHT IN REACH.
--- NOTE | 2023-03-21 12:49 | NUR ---
IN TO ROUND ON PT. PT SITTING UP IN BED. PT DENIES PAIN AT THIS TIME. PT STATES "IT JUST ITCHES." PT REQUESTING WATER. WATER PROVIDED. PT DENIES ANY OTHER NEEDS AT THIS TIME. CALL LIGHT IN REACH.
[2023-03-21 14:07] VITALS: BP 117/59
--- NOTE | 2023-03-21 14:09 | NUR ---
THIS RN ALERTED BY DAVID MILLER THAT IV PUMP ALARMING, RESOLVED. PT DENIES ANY NEEDS FROM THIS RN AT THIS TIME. CALL LIGHT IN REACH.
[2023-03-21 16:42] VITALS: BP 118/73
--- NOTE | 2023-03-21 16:44 | NUR ---
IN TO ROUND ON PT. PT RESTING IN BED AND RESPONDS WHEN ADDRESSED. PT REPORTING PAIN 4/10 IN RIGHT SHOULDER. PRN PAIN MEDICATION ADMINISTERED, SEE MAR. PT TAKES PO MEDICAITON WITH NO ISSUES. RAULITO PROVIDED. VITALS AND I&Os COMPLETE. ASSESSMENT COMPLETE. DRESSING D/I WITH SCANT AMOUNT OF SEROSANGUENUS DRAINAGE NOTED. PT DENIES ANY OTHER NEEDS AT THIS TIME. CALL LIGHT IN REACH.
--- NOTE | 2023-03-21 18:41 | NUR ---
IN TO ROUND ON PT. PT REPORTING PAIN 3/10 AND STATES "IT IS OKAY." PT NOTED TO BE TEARING UP. THIS RN ASKED PT WHAT IS GOING ON AND PT STATES "BABY MAMA ISSUES. SHE DID NOT ANSWER A BUNCH OF CALLS EARLIER THEN WHEN SHE DID ANSWER SHE SAID I COULD NO TALK TO MY DAUGHTER BECAUSE SHE LEFT TO GO CAMPING. I HAVE NOT GOTTEN TO TALK TO MY DAUGHTER SINCE BEFORE MOTHERS DAY." PROVIDED PT TISSUES. PT DENIES ANY NEEDS AT THIS TIME. CALL LIGHT IN REACH.
--- NOTE | 2023-03-21 19:40 | NUR ---
PT SITTING UP IN BED TALKING ON THE CELL PHONE. IV INFUSING. SAFETY PRECAUTIONS IN PLACE. CALL LIGHT WITHIN REACH. NO NEEDS AT THIS TIME.
[2023-03-21 20:24] VITALS: BP 124/69
--- NOTE | 2023-03-22 | NUR ---
PT RESTING IN BED. BREATHING EVEN AND UNLABORED. CALL LIGHT WITHIN REACH. IV FLUIDS INFUSING. SAFETY PRECAUTIONS IN PLACE.
--- NOTE | 2023-03-22 02:06 | NUR ---
PT RESTING IN BED. BREATHING EVEN AND UNLABORED. CALL LIGHT WITHIN REACH. SAFETY PRECAUTIONS IN PLACE.
--- NOTE | 2023-03-22 04:32 | NUR ---
PT IN BED WATCHING TV. NO NEEDS EXPRESSED AT THIS TIME. IV FLUIDS INFUSING. CALL LIGHT WITHIN REACH. SAFETY PRECAUTIONS IN PLACE.
[2023-03-22 05:05] VITALS: BP 111/61
[2023-03-22 05:25] LABS: BASOPHILS 0.7 % (0-2); EOSINOPHILS 6.9 % (0-6); HEMATOCRIT 41.5 % (35.0-50.0); HEMOGLOBIN 13.6 g/dL (12.0-18.0); LYMPHOCYTES 17.8 % (24-44); MCHC 32.9 g/dl (30-36); MCV 88.3 fl (81-99); MONOCYTES 8.9 % (0-12); NEUTROPHILS 65.7 % (39-80); PLATELET COUNT 426 K/uL (140-440); RDW 14.8 (10.5-15.0)
--- NOTE | 2023-03-22 07:03 | NUR ---
REPORT RECEIVED FROM RUSLAN MARIN. PT UP IN BED SEMI-FOWLERS. PT RESPONDS WHEN ADDRESSED. PT DENIES ANY NEEDS AT THIS TIME. CALL LIGHT IN REACH.
--- NOTE | 2023-03-22 07:30 | NUR ---
REPORT GIVEN TO DAY SHIFT RN. PT RESTING IN BED. BREATHING EVEN AND UNLABORED. CALL LIGHT WITHIN REACH. NO NEEDS AT THIS TIME. SAFETY PRECAUTIONS IN PLACE.
--- NOTE | 2023-03-22 07:35 | NUR ---
IN WITH DR. SPRAGUE. PT DRESSING REMOVED BY DR. SPRAGUE. PT SET UP FOR SHOWER. PT DENIES ANY OTHER NEEDS AT THIS TIME. CALL LIGHT IN REACH.
--- NOTE | 2023-03-22 08:57 | NUR ---
IN TO ADMINISTER MEDICATIONS SEE, MAR. PT TAKES PO MEDICAITONS WITH NO ISSUES. PT REPORTING PAIN 5/10 TO RIGHT SHOULDER. PRN PAIN MEDICATION ADMINISTERED, SEE MAR. ASSESSMENT COMPLETE. LUNG SOUNDS CLEAR. BOWEL TONES ACTIVE. RIGHT SHOULDER WOUND CLEANSED WITH NS AND PATTED DRY. DAKINS SOAKED GAUZE PLACED TO WOUND BED AND COVERED WITH ABD PAD. TAPE IN PLACE TO SECURE DRESSING. PT DENIES ANY OTHER NEEDS AT THIS TIME. CALL LIGHT IN REACH.
[2023-03-22 10:14] VITALS: BP 118/55
--- NOTE | 2023-03-22 10:20 | NUR ---
PT IN BED. WOKE TO MY KNOCK BUT STILL APPEARED VERY SLEEPY. DENIED NEEDS. SHORT VISIT TO ALLOW PT TO REST. PRAYED FOR ONGOING HEALING.
--- NOTE | 2023-03-22 11:06 | NUR ---
IN TO ROUND ON PT. PT RESTING IN BED AND OPENS EYES WHEN THIS RN ENTERS ROOM. PT REPORTING PAIN /. PT DENIES ANY PRN PAIN MEDICATION AT THIS TIME. PT DENIES ANY NEEDS AT THIS TIME. CALL LIGHT IN REACH.
--- NOTE | 2023-03-22 12:19 | NUR ---
IN TO ROUND ON PT. PT UP IN BED. MEAL TRAY REMOVED. PT REQUESTING RAULITO, RAULITO PROVIDED. URINAL EMPTIED. PT DENIES ANY OTHER NEEDS AT THIS TIME. CALL LIGHT IN REACH.
--- NOTE | 2023-03-22 13:50 | NUR ---
THIS RN CALLED DR. SPRAGUE REGARDING PTs AEROBIC PRELIMINIARY CULTURE FROM [facility] SHOWING STAPHYLOCOCCUS AUREUS. MD AWARE. NO NEW ORDERS AT THIS TIME.
[2023-03-22 14:20] VITALS: BP 131/65
--- NOTE | 2023-03-22 15:18 | NUR ---
IN TO ROUND ON PT. PT UP AMBULATING AROUND ROOM. ASSESSMENT COMPELTE. PT DENIES PAIN AT THIS TIME. DRESSING TO RIGHT SHOULDER C/D/I. LUNG SOUNDS CLEAR. BOWEL TONES ACTIVE. PT DENIES ANY OTHER NEEDS NEEDS AT THIS TIME. CALL LIGHT IN REACH.
[2023-03-22 18:00] VITALS: BP 128/73
[2023-03-22 20:02] VITALS: BP 124/78
--- NOTE | 2023-03-22 21:06 | NUR ---
PT ASSESED, DRESSED CLENSED AND CHANGED. MINIMAL PAIN DURING CHANGE. PT BABY MOMMA AT BEDSIDE PLAYING CARDS WITH PT.
--- NOTE | 2023-03-22 22:21 | NUR ---
PT UTILIZES CALL LIGHT, REQUESTS PRN PAIN MEDICATION. RATES PAIN 6/10 TO R SHOULDER. PRN ADMINISTERED, SEE EMAR. PT DENIES FURTHER NEEDS AT THIS TIME. CALL LIGHT IN REACH.
[2023-03-23 05:43] VITALS: BP 125/58
--- NOTE | 2023-03-23 05:48 | NUR ---
VS AND I&O COMPLETED. PT STATES NO NEEDS AT THIS TIME. CALL LIGHT IN REACH.
[2023-03-23 10:10] VITALS: BP 149/73
[2023-03-23] MEDS ORDERED: HYDROCODON-ACE1 EAC8 PO (11:48)
[2023-03-23] MEDS ORDERED: BACTRIM DS TAB1 EACH PO (11:56)
--- NOTE | 2023-03-24 07:26 | DS ---
[facility] [address] [place], [place] [address] Signed ADMISSION DATE: 03/19/2023 DISCHARGE DATE: 03/23/2023 FINAL DIAGNOSIS: Right posterior shoulder MRSA abscess. PROCEDURES: 1. Incision and drainage, right posterior shoulder abscess. 2. Wound culture. HISTORY OF PRESENT ILLNESS: Navdeep is a 32-year-old gentleman who apparently lives with a friend here in town. He does not have a car, but can drive. Consequently, he walks everywhere he goes. 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 Apparently, he has two children, but he is not . 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 He ended up with what he thought was a pimple on his right posterior shoulder, it got infected and progressively worse. He came to the emergency room and had it incised and drained. He came back the next day and it seemed to be worse. He never filled the antibiotic prescription from the ER. I have been asked to see him as a general surgeon on-call. HOSPITAL COURSE: Navdeep was admitted as above and we started him on daptomycin and Bactrim. I took him to the operating room that same day. We incised and drained his right posterior shoulder abscess. It was probably 5 x 10 cm. There was some pus, some fluid in the center, but a lot of the infection was out in the soft tissue and it oozed pus when we squeezed it like a wet sponge. Cultures came back MRSA with multiple sensitivities including the Bactrim. We have had him in the hospital now postoperative day 4. He has made good progress each day. The induration and swelling are now minimal to moderate. The tenderness is almost gone. There is no odor. There is no drainage. He has a little fibrinous exudate inferiorly, but the rest has all granulated in nicely. We used Dakin's soaked gauze until this morning. We are going to switch it out to saline soaked gauze. At this point, he has made good progress and I am going to allow him to go home. He said we can contact him via his friends phone number. We also have his mom's phone number here as well. DISCHARGE PLANS AND MEDICATIONS: Navdeep is going to be discharged to home with a prescription for Bactrim DS one tablet p.o. b.i.d. for 10 days. He has already received five days of antibiotics here. We are going to give him [place] one tab p.o. daily q.8 hours p.r.n. for severe pain. We will dispense 20 tablets with no refills. He can supplement with Tylenol, ibuprofen or Aleve for just over the counter. He is going to disregard the prescription from the Electronically Signed By: ABIGAIL SPRAGUE MD 03/24/23 0726 PATIENT NAME: NAVDEEP KAMINSKI DISCHARGE SUMMARY DATE OF : 89 REPORT #: [id number] PHYSICIAN: ABIGAIL SPRAGUE MD PCP: VISHAL GROSS DO REPORT IS CONFIDENTIAL AND NOT TO BE RELEASED WITHOUT AUTHORIZATION [facility] [address], [place] [address] Signed emergency room for antibiotics. He told me his roommate would never be able to change the dressing. It is over his shoulder and he is not able to change it himself. We have written orders and made arrangements that he will walk 1 mile to the hospital every day to our med/surg floor. He said he walks everywhere and 1 mile is nothing for him. Our nurses will remove and dress the packing. He can shower soap and water shampoo directly into the wound and then repack the wound with normal saline soaked gauze covered with a dry ABD and some tape. I will need to see him in my office in around 10 days for followup. He knows this is going to take multiple weeks to heal in completely. However, he has already made excellent progress. He can eat his regular diet. He can perform his activities of daily living including walking up and down stairs and showering, bathing as usual here with the help of our nurses. I have asked him not to do any heavy pushing, pulling, or lifting over about 20 pounds. He should not expose that area to the dust, dirt and certainly not the local river or pete. He has expressed understanding and agrees above plan. Abigail Sprague MD ALB/MODL /[id number] cc: MD Vishal Dunlap DO Copies: ABIGAIL SPRAGUE MD, ARIAN DO ~ Electronically Signed By: ABIGAIL SPRAGUE MD 03/24/23 0726 PATIENT NAME: NAVDEEP KAMINSKI DISCHARGE SUMMARY DATE OF : [birth year] REPORT #: [id number] PHYSICIAN: ABIGAIL SPRAGUE MD PCP: VISHAL GROSS DO REPORT IS CONFIDENTIAL AND NOT TO BE RELEASED WITHOUT AUTHORIZATION
== END 2023-03-23 11:30 | disposition home or self-care (01) | DRG 603 ==
LOC: ED 00:07 → MS 06:48
PROVIDERS: Internal Medicine; ADMIT Colon & Rectal Surgery; ATTEND Colon & Rectal Surgery
PROC: 0H9BXZZ Drainage of Right Upper Arm Skin, External Approach (ICD-10-PCS; principal; 2023-03-19 09:30)
DX: L02.413 Cutaneous abscess of right upper limb (principal); F32.A Depression, unspecified; D72.829 Elevated white blood cell count, unspecified; F15.90 Other stimulant use, unspecified, uncomplicated; K04.7 Periapical abscess without sinus; S61.432A Puncture wound without foreign body of left hand, initial encounter; X58.XXXA Exposure to other specified factors, initial encounter; F17.210 Nicotine dependence, cigarettes, uncomplicated; Z98.890 Other specified postprocedural states; Z93.1 Gastrostomy status; Z87.828 Personal history of other (healed) physical injury and trauma
CPT/HCPCS: 01610; 36415; 80048; 80053; 83735; 84100; 84134; 85025; 87070; 87075; 87186; 87205; 93005; 93010; 99284; A9270; C9113; J0878; J1650; J1885; J2001; J2543; J2704; J3490; J7121

== ENCOUNTER 2023-08-23 20:14 | Emergency (ER) | payer OTHER ==
[~2023-08-23] VITALS: Ht 177.8 cm; Wt 93.3 kg
[~2023-08-23 20:14] MED LIST changes: +HYDROCODON-ACE1 EAC8 PO
[2023-08-23 20:36] LABS: HEMATOCRIT 40.9 % (35.0-50.0); HEMOGLOBIN 13.4 g/dL (12.0-18.0); MCH 29.2 (27-36); MCHC 32.8 g/dl (30-36); MCV 89.1 fl (81-99); PLATELET COUNT 278 K/uL (140-440); RDW 13.9 (10.5-15.0)
[2023-08-23 20:57] LABS: ACETAMINOPHEN 0 ug/mL (10-30); SALICYLATE 2.4 mg/dL (2.8-20.0)
[2023-08-23 21:00] LABS: ALBUMIN 3.7 g/dL (3.4-5.0); ALCOHOL, MEDICAL <3 ng/dL (<3); ALKALINE PHOSPHATASE 72 U/L (46-116); ALT (SGPT) 21 U/L (14-59); ANION GAP 27.3 (7-21); AST (SGOT) 12 U/L (15-37); BILIRUBIN, TOTAL 0.5 ng/dL (0.2-1.0); BUN/CREATININE RATIO 7.69 (6.0-28.6); CALCIUM 8.7 mg/dL (8.5-10.1); CARBON DIOXIDE 18 mmol/L (21-32); CHLORIDE 99 mmol/L (98-107); CREATINE KINASE 88 U/L (39-308); CREATININE, SERUM 1.17 mg/dL (0.70-1.30); GLOMERULAR FILTRATION RATE,EST 85 mL/min (>60); POTASSIUM 3.3 mmol/L (3.5-5.1); PROTEIN, TOTAL 7.8 g/dL (6.4-8.2); UREA NITROGEN 9 mg/dL (7-18)
[2023-08-23 21:03] LABS: BILIRUBIN, URINE NEGATIVE (negative); BLOOD/HGB, URINE TRACE-I (Negative); KETONE, URINE TRACE (Negative); LEUK ESTERASE, URINE NEGATIVE (negative); NITRITE, URINE NEGATIVE (negative)
[2023-08-23 21:08] LABS: BANDS, MANUAL DIFF 6; LYMPHOCYTES, MANUAL DIFF 1; MONOCYTES, MANUAL DIFF 4; NEUTROPHILS, MANUAL DIFF 89
[2023-08-23 21:09] LABS: BACTERIA, URINE NONE SEEN /hpf (negative); CASTS, URINE NONE SEEN \\lpf; COLLECTION TYPE, URINE CLEAN CATCH; CRYSTALS, URINE NONE SEEN (0-1+); EPITHELIAL CELLS, URINE NONE SEEN /lpf (0-1+); REFLEX CULTURE, URINE No (No)
[2023-08-23 21:17] LABS: AMPHETAMINES, URINE POSITIVE (NEGATIVE); BARBITURATES, URINE NEGATIVE (NEGATIVE); BENZODIAZEPINE, URINE NEGATIVE (NEGATIVE); BUPRENORPHINE, URINE NEGATIVE (NEGATIVE); CANNABINOID, URINE POSITIVE (NEGATIVE); COCAINE, URINE NEGATIVE (NEGATIVE); ECSTASY, URINE NEGATIVE (NEGATIVE); FENTANYL, URINE NEGATIVE (NEGATIVE); METHADONE, URINE NEGATIVE (NEGATIVE); OPIATES, URINE NEGATIVE (NEGATIVE); OXYCODONE, URINE NEGATIVE (NEGATIVE); PHENCYCLIDINE, URINE NEGATIVE (NEGATIVE)
[2023-08-23 21:42] LABS: LACTIC ACID, BLOOD 9.3 mmol/L (0.4-2.0)
[2023-08-23 23:10] VITALS: BP 00/00
== END 2023-08-24 03:16 ==
LOC: ED 20:14
PROVIDERS: Internal Medicine
DX: I46.9 Cardiac arrest, cause unspecified (principal); F15.129 Other stimulant abuse with intoxication, unspecified; F17.200 Nicotine dependence, unspecified, uncomplicated; Z79.899 Other long term (current) drug therapy
CPT/HCPCS: 31500; 36415; 51702; 71045; 80053; 80307; 81001; 82553; 83605; 85025; 87040; 92950; 99291; A9270; G0480; J0171; J0282; J0330; J0461; J0696; J1940; J2060; J2310; J7121